=== PATIENT | female | born 1985 | race Caucasian/White ===

== ENCOUNTER → 2022-02-14 10:06 | Outpatient (CLI) | payer OTHER, SELFPAY ==
--- NOTE | 2022-02-14 10:07 | DI.US.S_ITS ---
ULTRASOUND OF RIGHT AXILLA: 02/14/2022 CLINICAL: Palpable right axilla lump. No prior exams were available for comparison. Color flow and real-time ultrasound of the right axilla were performed. Michael scale images of the real-time examination were reviewed. There are two benign normal lymph nodes in the right axilla that correlate with palpable abnormalities. IMPRESSION: BENIGN There is no sonographic evidence of malignancy. Two normal appearing and relatively shallow axillary lymph nodes correspond to the palpable abnormalities. Recommend clinical correlation and follow up. This exam was interpreted at Station ID: [id number]. Electronically Signed By: Slava pickett/noe:02/14/2022 14:10:35 letter sent: Clinical Evaluation Ultrasound BI-RADS: 2 Benign
== END ==
PROVIDERS: PCP Registered Nurse Diabetes Educator; Referring Provider Registered Nurse Diabetes Educator; Visit Provider Registered Nurse Diabetes Educator
DX: R22.31 Localized swelling, mass and lump, right upper limb (principal)
CPT/HCPCS: 76882

== ENCOUNTER 2022-12-13 06:44 | Day surgery (SDC) | payer OTHER, SELFPAY ==
[2022-12-12 12:06] VITALS: BMI 24.7
--- NOTE | 2022-12-12 18:04 | PM.GYNHP.1 ---
History of Present Illness History of Present Illness Reason for admission: other (HGSIL) Narrative: Ana Mehta is a 37 year old female who was found to have HGSIL (ASHLEY 2-3) on colposcopically directed biopsy on 10/02/2022 and is admitted now for LEEP. [facility] Medical History Acne (~1999) Allergies Chicken pox (~1990) Chronic cough (~2016) GERD (gastroesophageal reflux disease) (~2016) Surgical History Anesthesia History of hernia repair (~1992) History of nasal septoplasty (~04/2016) History of photorefractive keratectomy (PRK) (~2007) Family History Father GERD (gastroesophageal reflux disease) Restless leg syndrome Mother Hyperlipidemia anxiety Sister ADD (attention deficit disorder) Grandfather Cancer Hypertension Hyperlipidemia Grandmother Breast cancer Hyperlipidemia Hypertension Anxiety Depression Stroke Mental health problem Grandfather Cancer Grandmother Ovarian cancer Diabetes mellitus Anxiety Mental health problem Social History household members: spouse Smoking Status: Never smoker second hand exposure: No alcohol intake: current substance use type: does not use Meds Home Medications and Allergies Home Medications Medication Instructions Recorded Confirmed Type benzoyl peroxide 5 % topical 1 applictn topical DAILY 02/14/20 10/02/22 History cleanser etonogestrel 68 mg subdermal subdermal 02/14/20 10/02/22 History implant (Nexplanon) omeprazole 20 mg capsule,delayed 20 mg PO DAILY #30 caps 03/27/20 10/02/22 Rx release Allergies Allergy/AdvReac Type Severity Reaction Status Date / Time eviromental Allergy Unknown dust Uncoded 10/02/22 09:15 mites, ragweed, and cats from skin test. Review of Systems Review of Systems Narrative: Problem-specific ROS positives included in HPI Exam Const General: cooperative and comfortable Nutritional Appearance: average body habitus Orientation: alert and oriented x3 HENMT Head: normal to inspection, atraumatic and abrasion Ears: hearing grossly normal bilaterally Face and sinus: face symmetric Eyes General: appearance normal, both eyes and all related structures Conjunctivae: conjunctivae normal Sclera: sclerae normal EOM: EOM intact bilaterally Neck Neck: normal visual inspection Resp Effort & Inspection: normal respiratory effort and able to speak in complete sentences Auscultation: clear to auscultation bilaterally Cardio Rate: regular rate Rhythm: regular rhythm Heart Sounds: S1 normal, S2 normal and no murmurs GI Inspection: normal to inspection Palpation: soft and no hepatosplenomegaly External Female Exam: other (No significant bleeding noted) Extrem General: no calf tenderness Psych Appearance: grossly normal Mental Status: mental status grossly normal Speech and Movement: speech and movement normal Mood: congruent mood Affect: normal affect Attitude: cooperative Thought Process: normal Thought Content: normal Judgment: judgment good Assessment & Plan Assessment and plan (1) HGSIL (high grade squamous intraepithelial dysplasia): Status: Acute Plan Patient counseled regarding alternatives, risks, benefits, and potential complications associated with loop electrosurgical excision procedure (LEEP). With full understanding of the above, a written consent was executed, signed, and witnessed this date. Time Spent With Patient Time with patient: less than 30 minutes
[2022-12-13] VITALS (7 sets, daily range): BP systolic 92–124; BP diastolic 48–70; PULSE 54–90; RESP 12–16; TEMP 36.2–36.8; O2SAT 94–99; BMI 24.7
--- NOTE | 2022-12-13 | PATH_ITS ---
[facility] Accession Number: [id number] No. of containers..01 Tissue . 01 Material submitted: . cervix - LEEP CONE CUT @ 1200 . 01 Diagnosis: Cervix, LEEP Cone Cut at 12 o'clock: High-grade squamous intraepithelial lesion/ASHLEY 2-3 circumferentially involves the cervix (12-3, 3-6, 6-9, 9-12 o'clock quadrants) with focal gland neck involvement and patchy regions of low grade squamous intraepithelial lesion / ASHLEY-1. The apparent endocervical margin is negative for dysplasia. The apparent ectocervical margin appears negative for dysplasia, however, electrocautery artifact is obscuring. No invasive tumor identified. Changes suggestive of previous instrumentation are present. COUNT INCLUDES THE [facility] 12/17/2022 1814 Local . 01 Comment: The biopsy results correlate with Pap smear, [id number]. . 01 Electronically signed: . Jaycee Carmichael MD, Pathologist NPI- [id number] . 01 Gross description: . The specimen is received in formalin labeled with the patient's name, , and LEEP cone, and consists of an incised circular fragment of cervix with the incision designating 12 o'clock per the requisition. The specimen measures 2.6 cm from 12 o'clock to 6 o'clock, 2.3 cm from 3 o'clock to 9 o'clock, and is excised to a depth of 0.6 cm. The ectocervix is pink-garay and finely granular with a slit-like cervical os reapproximated to measure 0.3 cm in diameter. The endocervical margin is inked orange while the remaining stromal margins are inked blue. The specimen is radially sectioned and submitted entirely as follows: A1: 12-3 o'clock. A2: 3-6 o'clock. A3: 6-9 o'clock. A4: 9-12 o'clock. ([id number]) /FRAlida 12/14/2022 1251 Local . 01 Pathologist provided ICD-10: N87.1, R87.613 . 01 CPT . 912948 Specimen Comment: A courtesy copy of this report has been sent to [phone] Performed at: 01 [facility] [address] [place] [address], [place], [place] [id number] MD Jez Hwang MD Phone: [phone]
--- NOTE | 2022-12-13 07:08 | SUR.OPER ---
Lithotomy on padded OR bed, head on pillow, arms secured on padded arm boards at <90 degrees abduction. Legs secured in padded yellow fins stirrups.
[2022-12-13] MEDS: LACTATED RINGERS 1,000 ML 84 ML IV (07:21)
--- NOTE | 2022-12-13 07:52 | PM.PREOP ---
Pre-operative Note COVID-19 COVID-19 status: Not tested Criteria for continued procedure: Non-surgical alternatives not available or appropriate per current SOC Interval Note History & Physical reviewed/Exam performed by Physician: Yes Changes to H&P: No
--- NOTE | 2022-12-13 08:20 | P.OP_ITS ---
Operative Date/Time/Diagnoses Date of procedure: 12/13/22 Time of procedure: 08:00 Pre-op diagnosis: High-grade squamous intraepithelial lesion (HGSIL) of the cervix Post-op diagnosis: same Procedure & Clinicians Procedure: Procedures Operation Date: 12/13/22 07:45 Actual Procedure Side Surgeon p LEEP Procedure Krishan Graham MD Indications: Ana Mehta is a 37 year old female who was found to have HGSIL (ASHLEY 2-3) on colposcopically directed biopsy on 10/02/2022 and is admitted now for LEEP. Surgeon: Krishan Graham Anesthesia Type: General Operative Notes Findings: Well circumscribed AWE @ transformation zone w/o endocervical extension; fully excised. Closure Type: not applicable Specimen(s): other (LEEP Cone cut at 12:00) Estimated blood loss (mL): 10 Blood products transfused: none Procedure in detail: With the patient under satisfactory general anesthesia in the modified dorsal lithotomy position, the perineum and external genitalia were prepped and draped in the usual manner for LEEP. A pre-surgical safety time-out was then taken in accordance with [facility] OR protocols. A LEEP speculum was inserted in the vagina and the cervix easily visualized. The cervix was then covered with vinegar solution and the area aceto-white epithelium involved with the dysplastic changes was easily visualized and well-circumscribed. Using a 15 x 20 mm loop electrode, LEEP procedure was performed with 50 w pure cut and the specimen obtained submitted in formalin for pathologic evaluation. ECC was attempted but no tissue could be obtained. Ball cautery was then used to render the cone bed hemostatic. Once the cone bed was confirmed to be hemostatic, the procedure was terminated by removal of the the speculum from the vagina, the patient was awakened, then transferred to the PACU for a period of observation and recovery after having tolerated procedure well. Complications: none Post-operative Condition: stable Disposition: PACU Plan for aftercare: Routine post-op care
== END 2022-12-13 09:15 | disposition home or self-care (01) ==
PROVIDERS: PCP Registered Nurse Diabetes Educator; Referring Provider Obstetrics & Gynecology; Visit Provider Obstetrics & Gynecology
PROC: 0UBC7ZZ Excision of Cervix, Via Natural or Artificial Opening (ICD-10-PCS; CPT 57522; principal; 2022-12-13 07:45)
DX: N87.1 Moderate cervical dysplasia (principal)
CPT/HCPCS: 57522; J1100; J2250; J2405; J2704; J3010